=== PATIENT | male | born 1960 | race African-American/Black ===

== ENCOUNTER 2021-01-22 00:29 | Emergency (ER) | payer OTHER, MEDICAID, SELFPAY ==
--- NOTE | ~2021-01-22 | XR_ITS ---
EXAMINATION: XR chest 1V portable INDICATION: Transient alteration of awareness TECHNIQUE: Portable AP chest at 0202 hours COMPARISON: None available FINDINGS: The lungs are free of acute opacities. There is no pleural effusion or pneumothorax. The ca rdiomediastinal silhouette is normal. Suture anchors are noted in the humeral heads. IMPRESSION: 1. No acute cardiopulmonary abnormality. Reviewed, dictated and finalized at location A.
--- NOTE | ~2021-01-22 | CT_ITS ---
EXAMINATION: CTA chest PE abdomen pel DATE: 01/22/2021 03:34 INDICATION: Syncope TECHNIQUE: Computed tomography angiography (CTA) of the chest was performed with 100 mL Omnipaque-350 intravenous contrast timed to evaluate the pulmonary arteries. Subsequent postcontrast images of the abdomen and pelvis are obtained. Coronal maximum intensity projection 3D-reconstructions were create d by the technologist. The dose-length product (DLP) was 2279.15 mGy-cm. Automated exposure control a nd iterative reconstruction technique were employed. COMPARISON: None. FINDINGS: CTA CHEST: Respiratory motion artifact somewhat limits the examination. The pulmonary arteries are mo derately there is mild dependent atelectasis. No pleural effusion or pneumothorax is identified. No p athologically enlarged thoracic lymph nodes are identified. The heart size is normal. Well-opacified. No pulmonary embolism is identified. ABDOMEN/PELVIS CT: The liver, spleen, pancreas, gallbladder, and adrenal glands are normal. The kidne ys are unremarkable. No pathologically enlarged abdominal or pelvic lymph nodes are identified. There is no free intraperitoneal gas or evidence of bowel obstruction. The appendix is normal. There is mo derate distention of the urinary bladder. There is severe lumbar spondylosis. Fat-containing umbilica l hernia is noted. IMPRESSION: 1. No pulmonary embolism. 2. No acute findings in the abdomen or pelvis. Reviewed, dictated and finalized at location A.
[2021-01-22 00:30] VITALS: BP 122/79; PULSE 59; RESP 12; TEMP 36.8; O2SAT 98
--- NOTE | 2021-01-22 00:37 | ECG_ITS ---
Measurements Intervals [place] Rate: 61 P: 52 [place]: 174 QRS: 34 QRSD: 94 T: 30 QT: 407 QTc: 411 Interpretive Statements SINUS RHYTHM EARLY PRECORDIAL R/S TRANSITION BORDERLINE ECG Electronically Signed On 01-22-2021 7:04:45 CDT by Maged Reynolds D.O.
[2021-01-22 01:14] LABS: Basophils Absolute Auto 0.1 K/mm3 (0.0-0.1); Basophils Percent Auto 1.2 % (0.2-1.2); Eosinophils Absolute Auto 0.1 K/mm3 (0-0.3); Eosinophils Percent Auto 2.4 % (0-4.4); Hematocrit 36.7 % (42.0-52.0); Hemoglobin 11.8 g/dL (14.0-18.0); Immature Granulocyte Absolute 0.01 K/mm3 (0.00-0.031); Immature Granulocyte Percent A 0.2 % (0-0.5); Lymphocytes Absolute Auto 2.13 K/mm3 (0.9-3.2); Lymphocytes Percent Auto 36.5 % (18.3-44.2); Mean Corpuscular HGB Conc 32.2 g/dl (32-36); Mean Corpuscular Hemoglobin 31.9 pg (26-34); Mean Corpuscular Volume 99.2 fl (80-100); Mean Platelet Volume 10.1 fl (7.4-10.4); Monocytes Absolute Auto 0.8 K/mm3 (0.1-0.6); Monocytes Percent Auto 14.2 % (2.6-8.5); Neutrophils Absolute Auto 2.7 K/mm3 (1.3-6.7); Neutrophils Percent Auto 45.5 % (45.5-73.1); Platelet Count Result 247 k/mm3 (150-375); Red Cell Distribution Width 12.5 % (11.5-14.5); White Blood Count 5.8 K/mm3 (4.5-10.0)
[2021-01-22 01:29] LABS: Anion Gap 12 mmol/L (8-16); Blood Urea Nitrogen 17 mg/dL (9-20); Calcium 8.9 mg/dL (8.4-10.2); Carbon Dioxide 22 mmol/L (22-30); Chloride 104 mmol/L (98-107); Estimated CRCL calculation 68 ml/min; Estimated Glomerular Filt Rate > 60; Glucose 125 mg/dL (65-110); Sodium 138 mmol/L (137-145)
[2021-01-22 02:17] LABS: Alanine Aminotransferase 19 U/L (4-50); Albumin Level 4.3 g/dL (3.5-5.1); Alkaline Phosphatase 55 U/L (38-126); Aspartate Amino Transferase 26 U/L (17-59); Bilirubin,Total 0.6 mg/dL (0.2-1.3); INR 0.9; Magnesium 2.4 mg/dL (1.6-2.3); Prothrombin Time 12.1 Seconds (11.1-14.7)
[2021-01-22 02:18] LABS: Partial Thromboplastin Time 20.9 SECONDS (22.3-36.8)
[2021-01-22 02:21] LABS: D Dimer 2.06 ug/mL (<0.48)
[2021-01-22 02:29] LABS: Troponin I < 0.012 ng/mL (0.000-0.034)
[2021-01-22 04:08] VITALS: BP 171/87; PULSE 71; RESP 13; O2SAT 100
--- NOTE | 2021-01-22 04:22 | ED.GENADULT ---
HPI - General Adult General Chief complaint: Syncope Stated complaint: syncopal Time Seen by Provider: 01/22/21 01:51 History of Present Illness HPI narrative: Patient is a 60-year-old gentleman who presents the emergency department with chief complaint of syncope. Patient reports that he was eating some sausage got lightheaded and nauseated and vomited the patient then became unresponsive when EMS arrived they found that his pressure was in the 70s but subsequently it has come up. The patient states now he is able to move everything appropriately has no pain anywhere denies shortness of breath denies abdominal pain Related Data Home Medications Medication Instructions Recorded Confirmed acetaminophen 500 mg PO Q6H PRN 01/22/21 amlodipine 10 mg PO DAILY 01/22/21 aspirin [Aspir-81] 81 mg PO DAILY 01/22/21 citalopram [Celexa] 20 mg PO DAILY 01/22/21 meloxicam 15 mg PO DAILY 01/22/21 simvastatin [Zocor] 40 mg PO DAILY 01/22/21 trazodone 50 mg PO HS 01/22/21 Allergies Allergy/AdvReac Type Severity Reaction Status Date / Time No Known Allergies Allergy Mild Unverified 01/22/21 00:36 Review of Systems Review of Systems: A 10 system review of systems was completed on the patient and is negative except for what is stated in the HPI. Nursing and ancillary documentation was reviewed. Exam Narrative: GENERAL: Well-appearing, well-nourished, and in no acute distress. HEAD: Normocephalic, atraumatic. EYES: PERRLA and EOMI. ENT: Nares clear, no rhinorrhea or epistaxis. Mucous membranes moist. NECK: Supple. CHEST: Clear to auscultation. No respiratory distress. HEART: Regular rate and rhythm. No murmur heard. Normal peripheral pulses. ABDOMEN: Soft, nontender, nondistended, normal active bowel sounds. EXTREMITIES: Normal range of motion. No edema. SKIN: Warm, dry, no rash. NEURO: No focal deficits. Alert and oriented x3. PSYCH: Normal mood and affect. Course Vital Signs Vital signs: Vital Signs Temperature 36.8 C 01/22/21 00:30 Pulse Rate 59 L 01/22/21 00:30 Respiratory Rate 12 01/22/21 00:30 Blood Pressure 122/79 01/22/21 00:30 Pulse Oximetry 98 01/22/21 00:30 Temperature 36.8 C 01/22/21 00:30 Pulse Rate 69 01/22/21 06:21 Respiratory Rate 16 01/22/21 06:21 Blood Pressure 138/80 01/22/21 06:21 Pulse Oximetry 99 01/22/21 06:21 Medical Decision Making Vital Signs Vital Signs: Vital Signs Temperature 36.8 C 01/22/21 00:30 Pulse Rate 59 L 01/22/21 00:30 Respiratory Rate 12 01/22/21 00:30 Blood Pressure 122/79 01/22/21 00:30 Pulse Oximetry 98 01/22/21 00:30 Temperature 36.8 C 01/22/21 00:30 Pulse Rate 69 01/22/21 06:21 Respiratory Rate 16 01/22/21 06:21 Blood Pressure 138/80 01/22/21 06:21 Pulse Oximetry 99 01/22/21 06:21 Lab Data Result diagrams: 01/22/21 00:48 01/22/21 00:48 Labs: Lab Results 01/22/21 01/22/21 01/22/21 Range/Units 00:48 00:48 00:48 WBC 5.8 (4.5-10.0) K/mm3 RBC 3.70 L (4.6-6.20) M/mm3 Hgb 11.8 L (14.0-18.0) g/dL Hct 36.7 L (42.0-52.0) % MCV 99.2 (80-100) fl MCH 31.9 (26-34) pg MCHC 32.2 (32-36) g/dl RDW 12.5 (11.5-14.5) % Plt Count 247 (150-375) k/mm3 MPV 10.1 (7.4-10.4) fl Immature Gran % (Auto) 0.2 (0-0.5) % Neut % (Auto) 45.5 (45.5-73.1) % Lymph % (Auto) 36.5 (18.3-44.2) % [place] % (Auto) 14.2 H (2.6-8.5) % Eos % (Auto) 2.4 (0-4.4) % Baso % (Auto) 1.2 (0.2-1.2) % Lymph # (Auto) 2.13 (0.9-3.2) K/mm3 [place] # (Auto) 0.8 H (0.1-0.6) K/mm3 Eos # (Auto) 0.1 (0-0.3) K/mm3 Baso # (Auto) 0.1 (0.0-0.1) K/mm3 Abs Immat Gran (auto) 0.01 (0.00-0.031) K/mm3 Absolute Neuts (auto) 2.7 (1.3-6.7) K/mm3 Absolute Nucleated RBC 0.0 (0.0-0.012) K/mm3 Nucleated RBC % 0.0 (0.0-0.2) % PT 12.1 (11.1-14.7) Seconds INR 0.9 APTT 20.9 L (22.3-36.8) SECONDS D-Dimer
[2021-01-22 05:23] LABS: Troponin I < 0.012 ng/mL (0.000-0.034)
[2021-01-22 06:21] VITALS: BP 138/80; PULSE 69; RESP 16; O2SAT 99
[2021-01-22 07:41] VITALS: BP 138/80; PULSE 70; RESP 20; O2SAT 99
== END 2021-01-22 07:55 | disposition home or self-care (01) ==
PROVIDERS: Emergency Provider Emergency Medicine
DX: R55 Syncope and collapse (principal); R94.31 Abnormal electrocardiogram [ECG] [EKG]
CPT/HCPCS: 36415; 71045; 71275; 74177; 80048; 80076; 83735; 84484; 85025; 85380; 85610; 85730; 93005; 99284; Q9967

== ENCOUNTER 2025-03-15 11:22 | Outpatient (CLI) | payer MEDICARE, SELFPAY ==
--- OUTSIDE RECORDS SUMMARY | 2025-03-15 12:14 | XMS_ITS | Clinical Summary ---
Author Organization [facility] Address [address] [place] [address] Care Team Providers Care Military Source Operations Specialist Name Role Phone FierroYary brewer Primary Care Provider [phone] Source Comments [facility] [employer],non-owned Affiliates and Associated Physician Practices is amultiple site organization consisting of ambulatory clinics and hospital sitesin [place], [place], [place] and [place]. This disclosure is being madepursuant to the Care Everywhere program and may not contain all information available regarding this patient. Last updated 18.[facility] Allergies No known active allergies Medications * Be aware that medications may not be up to date on this document. Alwaysverify current medications with the patient. amLODIPine (Norvasc) 10 MG tablet Take 1 (one) tablet by mouth once daily 11/28/2023 Active citalopram (CeleXA) 20 MG tablet Take 1 (one) tablet by mouth once daily Active meloxicam (Mobic) 15 MG tablet Take 1 (one) tablet by mouth once daily 05/08/2024 Active simvastatin (Zocor) 40 MG tablet Take 0.5 (one-half) tablet by mouth once daily 09/11/2024 Active traZODone (Desyrel) 100 MG tablet Take 0.5 (one-half) tablet by mouth at bedtime 04/14/2024 Active traMADol (Ultram) 50 MG tablet Take 1 (one) tablet by mouth as needed for Pain Active sildenafil (Viagra) 100 MG tablet Take 1 (one) tablet by mouth once daily as needed (One hour prior to intercourse) 05/08/2024 Active dorzolamide-martha olol (Cosopt) 2-0.5 % ophthalmic solution Instill 1 (one) drop into right eye 2 times daily 03/19/2024 Active brinzolamide-br imonidine (Simbrinza) 1-0.2 % ophthalmic suspension 1 (one) drop 3 times daily Active ACETAMINOPHEN PO Take 650 mg by mouth 2 times daily Active latanoprost (Xalatan) 0.005 % ophthalmic solution 1 (one) drop at bedtime Active CHLORTHALIDONE PO Take 20 mg by mouth once daily Active Encounters Date Type Department Care Team Description 01/26/2025 11:20 AM CDT Office Visit [facility] [place] [address] Khalif Elias PA Nocturia (Primary Dx); Erectile dysfunction, unspecified erectile dysfunction type; Screening for prostate cancer 01/26/2025 11:13 AM CDT - 01/26/2025 11:59 PM CDT Hospital Encounter [facility] [address] [place] [address], [address] [place] [address] Discharge Disposition: Home or Self Care 01/26/2025 Telephone [facility] - Urology [address] [place] [address] Khalif Elias PA Results 01/26/2025 Travel from Last 3 Months Social History Tobacco Use Types Packs/Day Years Used Date Smoking Tobacco: Never Smokeless Tobacco: Never Tobacco Cessation:Counseling Given: No Alcohol Use Standard Drinks/Week Comments Not Currently 0 (1 standard drink = 0.6 oz pur e alcohol) Sex and Gender Information Value Date Recorded Sex Assigned at Not on file Legal Sex Male 2:46 PM CDT Gender Identity Not on file Sexual Orientation Not on file Last Filed Vital Signs Vital Sign Reading Time Taken Comments Blood Pressure 119/71 01/26/2025 10:49 AM CDT Pulse 55 01/26/2025 10:49 AM CDT Temperature 36.1 C (97 F) 01/26/2025 10:49 AM CDT Respiratory Rate - - Oxygen Saturation 96% 01/26/2025 10:49 AM CDT Inhaled Oxygen Concentration - - Weight 93.4 kg (206 lb) 01/26/2025 10:49 AM CDT Height 177.8 cm (5' 10) 01/26/2025 10:49 AM CDT Body Mass Index 29.56 01/26/2025 10:49 AM CDT Plan of Treatment Health Maintenance Due Date Last Done Comments COLOGUARD (AGES 45-75) - COLON CA SCREENING 1959 COLON MONITORING 1959 COLONOSCOPY - COLON CA SCREENING 1959 CT COLONOGRAPHY - COLON CA SCREENING 1959 Colorectal Cancer Screening 1959 FIT - COLON CA SCREENING 1959 FLEX SIG - COLON CA SCREENING 1959 HIV SCREENING 1974 HEPATITIS C SCREENING 04/25/1977 DTAP/TDAP/TD VACCINES (1 - Tdap) 1978 PNEUMOCOCCAL VACCINE 50+ (1 of 1 - PCV) 2009 ZOSTER VACCINE (1 of 2) 2009 DEPRESSION SCREENING 05/06/2024 SCREENING FOR DIABETES 10/20/2024 COVID-19 VACCINE ( - season) 2025 01/31/2022, 02/18/2021, 08/16/2020, Additional history exists INFLUENZA VACCINE (#1) 2025 , 02/21/2023, 01/31/2022, Additional history exists Respiratory Syncytial Virus (RSV) Vaccine Pt: or over 60 yrs (1 - 1-dose 75+ series) 2034 HEPATITIS B VACCINE Aged Out No longe r eligible based on patient's age to complete this topic HIB VACCINE Aged Out No longer eligi ble based on patient's age to complete this topic HPV VACCINE Aged Out No longer eligi ble based on patient's age to complete this topic MENINGOCOCCAL (Group B) VACCINE SHARED DECISION-MAKING Aged Out No longer eligible based on patient's age to complete this topic MENINGOCOCCAL GROUPS A/C/Y/W VACCINE Aged Out No longer eligible based on patient's age to complete this topic Procedures Procedure Name Priority Date/Time Associated Diagnosis Comments PSA SERIAL Routine 01/26/2025 11:13 AM CDT Screening for prostate cancer from Last 3 Months Results * PSA SERIAL (01/26/2025 11:13 AM CDT) PSA Total 2.2 <4.0 ng/mL 01/26/2025 12:04 PM CDT [facility] Blood BLOOD SPECIMEN / Unknown Lab Venipuncture / Unknown 01/26/2025 11:13 AM CDT 01/26/2025 11:18 AM CDT Narrative [facility] - 01/26/2025 12:04 PM CDT PSA values will vary depending on the testing procedure used. Results are not comparable across different test methods. [facility] uses the [email or web address] Alinity immunoassay test method. us Khalif Moss LAB - CHEMISTRY ORDERABLES Final Result [facility] [address] [place] [address], [place] [phone] from Last 3 Months Insurance [facility] Care Teams Military Source Operations Specialist Relationship Specialty Start Date End Date Yary Fierro DO [address] [place] [address] PCP - General Family Medicine 10/06/24
--- OUTSIDE RECORDS SUMMARY | 2025-03-15 12:14 | XMS_ITS | Encounter Summary ---
Author Organization [facility] Address [address] [place] [address] Care Team Providers Care Hair Worker Name Role Phone Yary Fierro DO Primary Care Provider [phone]- [phone] Encounter Details Date Type Department Care Team (Late st Contact Info) Description 11/19/2024 Telephone [facility] - Dermatology [address] [place] [address] None, Physician [address] [place] [address] Social History Tobacco Use Types Packs/Day Years Used Date Smoking Tobacco: Never Smokeless Tobacco: Never Alcohol Use Standard Drinks/Week Comments Not Currently 0 (1 standard drink = 0.6 oz pur e alcohol) Sex and Gender Information Value Date Recorded Sex Assigned at Not on file Legal Sex Male 2:46 PM CDT Gender Identity Not on file Sexual Orientation Not on file documented as of this encounter Miscellaneous Notes * Telephone Encounter - [facility] - 11/19/2024 8:41 AM CDT Called pt to reschedule apt. Pt agreed to the new date and time. documented in this encounter Plan of Treatment Not on file documented as of this encounter Visit Diagnoses Not on filedocumented in this encounter Care Teams Hair Worker Relationship Specialty Start Date End Date Yary Fierro DO [address] [place] [id number] PCP - General Family Medicine 10/06/24 documented as of this encounter
[2025-03-15 12:52] LABS: Hematocrit 39.3 % (42.0-52.0); Hemoglobin 12.7 g/dL (14.0-18.0); Immature Granulocyte Percent A 0.3 % (0-0.5); Lymphocytes Absolute Auto 1.77 K/mm3 (0.9-3.2); Mean Corpuscular HGB Conc 32.3 g/dl (32-36); Mean Corpuscular Hemoglobin 32.6 pg (26-34); Mean Corpuscular Volume 100.8 fl (80-100); Nucleated Red Blood Cells Absolute Auto 0.000 K/mm3 (0.0-0.012); Nucleated Red Blood Cells Perc 0.0 % (0.0-0.2); Platelet Count Result 235 k/mm3 (150-375); Red Blood Count 3.90 M/mm3 (4.6-6.20); White Blood Count 6.0 K/mm3 (4.5-10.0)
[2025-03-15 13:03] LABS: Hemoglobin A1C 4.8 % (<5.7)
[2025-03-15 13:14] LABS: Alanine Aminotransferase 18 U/L (6-50); Albumin Level 4.3 g/dL (3.5-5.1); Alkaline Phosphatase 59 U/L (38-126); Anion Gap 7 mmol/L (4-12); Aspartate Amino Transferase 24 U/L (17-59); Bilirubin,Total 0.7 mg/dL (0.2-1.3); Blood Urea Nitrogen 21 mg/dL (9-20); Calcium 9.3 mg/dL (8.4-10.2); Carbon Dioxide 28 mmol/L (22-30); Chloride 104 mmol/L (98-107); Cholesterol 180 mg/dL (0-200); Estimated Glomerular Filt Rate > 60; Glucose 113 mg/dL (65-110); HDL Direct 42 mg/dL; Potassium 4.1 mmol/L (3.4-5.0); Sodium 139 mmol/L (137-145); Total Protein 7.1 g/dL (6.3-8.2); Triglycerides 294 mg/dL (<150)
[2025-03-15 13:29] LABS: MALB Creatinine Ratio 5.0 mg/g (0-30)
[2025-03-15 13:50] LABS: Prostate Specific Antigen 2.7 ng/mL (< OR = 4.0)
[2025-03-15 14:09] LABS: Vitamin B12 998.0 pg/mL (239-931)
== END 2025-03-15 11:23 | disposition home or self-care (01) ==
LOC: ANHGOSHLAB 11:23
PROVIDERS: PCP Family Medicine; Visit Provider Clinical Nurse Specialist
DX: Z12.5 Encounter for screening for malignant neoplasm of prostate (principal); I10 Essential (primary) hypertension; E78.2 Mixed hyperlipidemia; R73.01 Impaired fasting glucose
CPT/HCPCS: 36415; 80053; 80061; 82043; 82607; 83036; 84153; 85025; G0103

== ENCOUNTER 2025-03-25 14:49 | Emergency (ER) | payer MEDICARE, OTHER, SELFPAY ==
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
[2025-03-25 15:01] VITALS: BP 130/81; PULSE 60; RESP 18; TEMP 36.4; O2SAT 99
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
--- OUTSIDE RECORDS SUMMARY | 2025-03-25 17:46 | XMS_ITS | Clinical Summary ---
Author Organization [facility] Address [address] [place] [address] Care Team Providers Care Turbine Room Attendant Name Role Phone Yary Fierro Primary Care Provider [phone]- [phone] Source Comments [facility] [employer],non-owned Affiliates and Associated Physician Practices is amultiple site organization consisting of ambulatory clinics and hospital sitesin [place], [place], [place] and [place]. This disclosure is being madepursuant to the Care Everywhere program and may not contain all information available regarding this patient. Last updated 18.[facility] Allergies No known active allergies Medications * [...] Description 01/26/2025 11:20 AM CDT Office Visit [facility] [place] [address] Khalif Elias PA Nocturia (Primary Dx); Erectile dysfunction, unspecified erectile dysfunction type; Screening for prostate cancer 01/26/2025 11:13 AM CDT - 01/26/2025 11:59 PM CDT Hospital Encounter [facility] [address] [place] [address], [address] [place] [address] Discharge Disposition: Home or Self Care 01/26/2025 Telephone [facility] - Urology [address] [place] [address] Khalif Elias PA Results 01/26/2025 [...] 2.2 <4.0 ng/mL 01/26/2025 12:[address] [facility] Blood BLOOD SPECIMEN / Unknown Lab Venipuncture / Unknown 01/26/2025 11:13 AM CDT 01/26/2025 11:[address] [facility] - 01/26/2025 12:04 PM CDT PSA values will vary depending on the testing procedure used. Results are not comparable across different test methods. [facility] uses the Performance Indicator Alinity immunoassay test method. us Khalif Moss LAB - CHEMISTRY ORDERABLES Final Result [facility] [address] [place] [address], [place] [phone] from Last 3 Months Insurance [employer] Care Teams Turbine Room Attendant Relationship Specialty Start Date End Date Yary Fierro DO [address] [place] [address] PCP - General Family Medicine 10/06/24
--- OUTSIDE RECORDS SUMMARY | 2025-03-25 17:46 | XMS_ITS | Encounter Summary ---
Author Organization [facility] Address [address] [place] [address] Care Team Providers Care Coating Inspector Name Role Phone Yary Fierro DO Primary Care Provider +1- [phone] Encounter Details Date Type Department Care Team (Late st Contact Info) Description 11/19/2024 Telephone [facility] - Dermatology [address] [place] [address] None, Physician [address] [place] [address] Social History Tobacco Use Types Packs/Day Years [...] on filedocumented in this encounter Care Teams Coating Inspector Relationship Specialty Start Date End Date Yary Fierro DO [address] [place] [id number] PCP - General Family Medicine 10/06/24 documented as of this encounter
--- OUTSIDE RECORDS SUMMARY | 2025-03-25 19:06 | XMS_ITS | Clinical Summary ---
Author Organization [facility] Address [address] [place] [address] Care Team Providers Care Dancer Or Choreographer Name Role Phone Yary Fierro Primary Care Provider +1- [phone] Source Comments [facility] [employer],non-owned Affiliates and Associated Physician Practices is amultiple site organization consisting of ambulatory clinics and hospital sitesin [place], [place], [place] and [place]. This disclosure is being madepursuant to the Care Everywhere program and may not contain all information available regarding this patient. Last updated 18.[facility] [employer] Allergies No known active allergies Medications * [...] Description 01/26/2025 11:20 AM CDT Office Visit [facility]rology [facility] [place] [address] Khalif Elias PA Nocturia (Primary Dx); Erectile dysfunction, unspecified erectile dysfunction type; Screening for prostate cancer 01/26/2025 11:13 AM CDT - 01/26/2025 11:59 PM CDT Hospital Encounter [facility] [address] [place] [address], [address] [place] [address] Discharge Disposition: Home or Self Care 01/26/2025 Telephone [facility] - Urology [address] [place] [address] Khalif Elias PA Results 01/26/2025 [...] 2.2 <4.0 ng/mL 01/26/2025 12:04 PM CDT [facility] Blood BLOOD SPECIMEN / Unknown Lab Venipuncture / Unknown 01/26/2025 11:13 AM CDT 01/26/2025 11:18 AM CDT Narrative [facility] - 01/26/2025 12:04 PM CDT PSA values will vary depending on the testing procedure used. Results are not comparable across different test methods. [facility] uses the Pintics Alinity immunoassay test method. us Khalif Moss LAB - CHEMISTRY ORDERABLES Final Result [facility] [address] [place] [address], [place] [phone] from Last 3 Months Insurance [facility] Care Teams Dancer Or Choreographer Relationship Specialty Start Date End Date Yary Fierro DO [address] [place] [address] PCP - General Family Medicine 10/06/24
[2025-03-25] MEDS: ACETAMINOPHEN 500 MG TABLET 1000 MG PO (19:52)
[2025-03-25] MEDS: CYCLOBENZAPRINE HCL 10 MG TABLET PO (19:52)
[2025-03-25] MEDS: KETOROLAC 30 MG/ML VIAL (*BKC) IM (19:53)
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
[2025-03-25 21:44] VITALS: BP 142/85; PULSE 77; RESP 16; TEMP 37.1; O2SAT 98
== END 2025-03-25 21:47 | disposition home or self-care (01) ==
PROVIDERS: PCP Family Medicine
DX: S19.9XXA Unspecified injury of neck, initial encounter (principal); S29.9XXA Unspecified injury of thorax, initial encounter; S39.92XA Unspecified injury of lower back, initial encounter; I10 Essential (primary) hypertension; H40.9 Unspecified glaucoma; Z96.651 Presence of right artificial knee joint; V44.5XXA Car driver injured in collision with heavy transport vehicle or bus in traffic accident, initial encounter; M51.369 Other intervertebral disc degeneration, lumbar region without mention of lumbar back pain or lower extremity pain; M51.379 Other intervertebral disc degeneration, lumbosacral region without mention of lumbar back pain or lower extremity pain
CPT/HCPCS: 70450; 72125; 72128; 72131; 96372; 99284; A9270; J1885; L0140